=== PATIENT | male | born 1970 | race Caucasian/White ===

== ENCOUNTER 2019-02-12 13:08 | Emergency (ER) | payer BC ==
--- OUTSIDE RECORDS SUMMARY | 2019-02-12 13:11 | XMS REPORT | Clinical Summary ---
:1970 [address] [facility] [place], [place] Address [address] [place] [address] Care Team Providers Name Role Phone Trip Primary Care Provider Allergies No Known Allergies Medications Medication Sig Dispensed Refills Start Date End Date Status lisinopril Take 10 mg by 0 Active (PRINIVIL,ZESTRIL) 10 mouth 2 (two) MG tablet times daily. propranolol (INDERAL) Take 10 mg by 0 Active 10 MG tablet mouth 2 (two) times daily. Missing or 0 Active Non-Formulary Medication Active Problems Problem Noted Date Rectal bleeding 10/07/2014 Social History Tobacco Use Types Packs/Day Years Used Date Never Smoker Smokeless Tobacco: Current User Snuff Tobacco Cessation: Ready to Quit: Yes; Counseling Given: Yes Alcohol Use Drinks/Week oz/Week Comments Yes OCCASIONAL Sex Assigned at Date Recorded Not on file Job Start Date Occupation Industry Not on file Not on file Not on file Travel History Travel Start Travel End No recent travel history available. Last Filed Vital Signs Not on file Plan of Treatment Not on file Implants Implanted Type Area Blood Bank Attendant Device Shelf Model / Identifier Expiration Date Serial / Lot Adhesion Barrier,Seprafilm 5x6 - [id number] Cement/Fi [employer] [id number] / Implanted: Qty: 1 on 10/11/2014 by Rickey Duvall MD llaudi/[employer] / sive [id number] Results Not on fileafter 02/11/2018 Insurance Payer Benefit Plan / Subscriber ID Type Phone Address Group BLUE CROSS/BLUE BCBS FED xxxxxxxxx [facility] [phone] [address] [place] [address] Advance Directives For more information, please contact:[address] [phone] Code Status Date Activated Date Inactivated Comments Full Code 10/11/2014 5:15 PM 10/14/2014 9:23 PM This code status was determined by: Patient
[2019-02-12 14:57] LABS: Absolute Lymphocytes (CBC) 1.2 K/uL (0.7-4.9); Absolute Monocytes 0.5 K/uL (0.1-1.3); Absolute Neutrophil 6.6 K/uL (1.8-8.0); Basophils % 0.8 % (0-1.3); Eosinophils % 0.8 % (0-4.4); Hematocrit 41.4 % (39.6-49.0); Lymphocytes % 14.4 % (15.3-44.8); MPV 8.7 fL (7.6-11.3); Monocytes % 5.5 % (3.3-12.3); RBC Red Blood Cell Count 4.51 M/uL (4.33-5.43)
[2019-02-12 15:06] LABS: Protime INR 0.99
--- NOTE | 2019-02-12 15:15 | EKG ---
Test Date: 2019-02-12 Test Time: 13:14:32 Port Captain: MALINDA MEASUREMENT RESULTS: Intervals: Rate: 77 CO: 154 QRSD: 96 QT: 334 QTc: 377 [place]: P: 67 CO: 154 QRS: 36 T: 45 INTERPRETIVE STATEMENTS: Normal sinus rhythm Normal ECG Compared to ECG 03/02/2008 20:58:48 No significant changes Electronically Signed On 02-12-19 15:14:54 CDT by Isma Jefferson
[2019-02-12 15:21] LABS: ALT/SGPT 49 U/L (12-78); AST/SGOT 33 U/L (15-37); Albumin 3.8 g/dL (3.4-5.0); Alkaline Phosphatase 60 U/L (45-117); BUN Blood Urea Nitrogen 15 mg/dL (7-18); Bicarbonate 23 mmol/L (21-32); Bilirubin Direct 0.2 mg/dL (0-0.2); Bilirubin Total 0.7 mg/dL (0.2-1.0); Creatine Phosphokinase 200 U/L (39-308); Glucose Level 99 mg/dL (74-106); NT PRO-BNP 23 pg/mL (<125); Protein, Total 7.7 g/dL (6.4-8.2); Sodium Level 132 mmol/L (136-145); Troponin (Emerg Dept Use Only) < 0.02 ng/mL (0.0-0.045)
--- NOTE | 2019-02-12 15:52 | RAD REPORT ---
EXAM DESCRIPTION: RAD - Chest Single View - 02/12/2019 3:45 pm CLINICAL HISTORY: Chest pain and pressure COMPARISON: February 2008 TECHNIQUE: AP portable chest image was obtained 1507 hours . FINDINGS: Lungs are clear of focal finding. Interstitial pattern is similar to comparison. . Heart and vasculature are normal. No measurable pleural effusion and no pneumothorax. No acute bony abnorma lity seen. No acute aortic findings suspected. IMPRESSION: No acute cardiopulmonary process. No significant interval change.
--- NOTE | 2019-02-12 16:37 | EDPHYS ---
Physician Documentation [facility] Name: Hilario Ramsey Age: 48 yrs Sex: Male : 1970 Arrival Date: 02/12/2019 Time: 13:10 Bed 27 Private MD: ED Physician Kwaku Amaya HPI: 02/12 19:00 This 48 yrs old Male presents to ER via Ambulatory with complaints of Chest gs Pain, Shortness Of Breath. 19:00 The patient or guardian reports chest pain that is located primarily in the anterior gs chest wall. Onset: yesterday. The pain does not radiate. Associated signs and symptoms: Pertinent positives: nausea, last pm was nauseated, Pertinent negatives: diaphoresis. The chest pain is described as dull, a heaviness. Duration: The patient or guardian reports multiple episodes, that are intermittent, that wax and wane, with no pattern. Modifying factors: The symptoms are alleviated by nothing. the symptoms are aggravated by nothing. Severity of pain: At its worst the pain was moderate in the emergency department the pain has improved markedly. The patient has experienced similar episodes in the past, a few times. Historical: - Allergies: 13:20 No Known Allergies; ss - PMHx: 13:20 Hypertension; colon CA; ss - PSHx: 13:20 colectomy; knee repair; ss - Immunization history:: Adult Immunizations up to date. - Social history:: Smoking status: Patient uses tobacco products, chewing tobacco. - Ebola Screening: : Patient denies exposure to infectious person Patient denies travel to an Ebola-affected area in the 21 days before illness onset. ROS: 19:00 All other systems are negative. gs Exam: 19:00 Head/Face: Normocephalic, atraumatic. Eyes: Pupils equal round and reactive to light, gs extra-ocular motions intact. Lids and lashes normal. Conjunctiva and sclera are non-icteric and not injected. Cornea within normal limits. Periorbital areas with no swelling, redness, or edema. ENT: Nares patent. No nasal discharge, no septal abnormalities noted. Tympanic membranes are normal and external auditory canals are clear. Oropharynx with no redness, swelling, or masses, exudates, or evidence of obstruction, uvula midline. Mucous membranes moist. Neck: Trachea midline, no thyromegaly or masses palpated, and no cervical lymphadenopathy. Supple, full range of motion without nuchal rigidity, or vertebral point tenderness. No Meningismus. Chest/axilla: Normal chest wall appearance and motion. Nontender with no deformity. No lesions are appreciated. Cardiovascular: Regular rate and rhythm with a normal S1 and S2. No gallops, murmurs, or rubs. Normal PMI, no JVD. No pulse deficits. Respiratory: Lungs have equal breath sounds bilaterally, clear to auscultation and percussion. No rales, rhonchi or wheezes noted. No increased work of breathing, no retractions or nasal flaring. Abdomen/GI: Soft, non-tender, with normal bowel sounds. No distension or tympany. No guarding or rebound. No evidence of tenderness throughout. Back: No spinal tenderness. No costovertebral tenderness. Full range of motion. Skin: Warm, dry with normal turgor. Normal color with no rashes, no lesions, and no evidence of cellulitis. MS/ Extremity: Pulses equal, no cyanosis. Neurovascular intact. Full, normal range of motion. Neuro: Awake and alert, GCS 15, oriented to person, place, time, and situation. Cranial nerves II-XII grossly intact. Motor strength 5/5 in all extremities. Sensory grossly intact. Cerebellar exam normal. Normal gait. 19:00 Constitutional: The patient appears alert, awake. 19:00 ECG was reviewed by the Attending Physician. Vital Signs: 13:20 BP 163 / 95; Pulse 81; Resp 17; Temp 98.6(TE); Pulse Ox 97% on R/A; Weight 95.25 kg; ss Height 5 ft. 9 in. (175.26 cm); Pain 5/10; 14:27 BP 123 / 83; Pulse 72; Resp 16; Temp 98.6(O); Pulse Ox 96% on R/A; mh5 15:45 BP 137 / 91; Pulse 73; Resp 18; Temp 98.7; Pulse Ox 97% on R/A; mg2 16:46 BP 132 / 84; Pulse 71; Resp 18; Temp 98.5(O); Pulse Ox 100% ; Pain 0/10; mg2 13:20 Body Mass Index 31.01 (95.25 kg, 175.26 cm) MDM: 14:34 Patient medically screened. gs 19:00 Differential diagnosis: acute myocardial infarction, chest wall pain, pleurisy, gs pneumonia. HEART Score: History: Slightly Suspicious (0), ECG: Normal (0), Age: > 45 and < 65 years (1), Risk Factors: 1 or 2 risk factors (1), [Hypertension] Troponin: < or = 1 x Normal Limit (0). 19:00 Data reviewed: vital signs, nurses notes, lab test result(s), EKG, radiologic studies. Counseling: I had a detailed discussion with the patient and/or guardian regarding: the historical points, exam findings, and any diagnostic results supporting the discharge/admit diagnosis, the need for outpatient follow up. Response to treatment: the patient's symptoms have resolved after treatment, the patient's pain is gone. 02/12 14:36 Order name: Basic Metabolic Panel; Complete Time: 15:40 02/12 14:36 Order name: CBC with Diff; Complete Time: 15:40 02/12 14:36 Order name: LFT's; Complete Time: 15:40 02/12 14:36 Order name: Magnesium; Complete Time: 15:40 02/12 14:36 Order name: NT PRO-BNP; Complete Time: 15:40 02/12 14:36 Order name: PT-INR; Complete Time: 15:40 02/12 13:18 Order name: EKG; Complete Time: 13:19 02/12 13:18 Order name: EKG - Nurse/Tech; Complete Time: 13:18 02/12 14:36 Order name: Troponin (emerg Dept Use Only); Complete Time: 15:40 02/12 14:36 Order name: XRAY Chest (1 view); Complete Time: 16:01 02/12 14:36 Order name: Cardiac monitoring; Complete Time: 14:51 02/12 14:36 Order name: IV Saline Lock; Complete Time: 14:51 02/12 14:36 Order name: Labs collected and sent; Complete Time: 14:51 02/12 14:36 Order name: CPK; Complete Time: 15:40 02/12 14:36 Order name: O2 Per Protocol; Complete Time: 14:51 02/12 14:36 Order name: O2 Sat Monitoring; Complete Time: 14:52 EC:00 Rate is 77 beats/min. Rhythm is regular. SC interval is normal. QRS interval is normal. gs T waves are Normal. No ST changes noted. Clinical impression: Normal ECG. Interpreted by me. Administered Medications: No medications were administered Disposition: 02/12/19 16:36 Discharged to Home. Impression: Chest pain, unspecified. - Condition is Stable. - Discharge Instructions: Nonspecific Chest Pain. - Medication Reconciliation Form, Thank You Letter, Antibiotic Education, Prescription Opioid Use form. - Follow up: Isma Jefferson MD; When: 2 - 3 days; Reason: Re-evaluation by your physician. Signatures: Dispatcher [employer] [facility] Lily Avalos RN RN ss Kwaku Amaya MD MD Todd Lott RN RN mg2 Corrections: (The following items were deleted from the chart) 16:53 16:36 02/12/2019 16:36 Discharged to Home. Impression: Chest pain, unspecified. mg2 Condition is Stable. Forms are Medication Reconciliation Form, Thank You Letter, Antibiotic Education, Prescription Opioid Use. Follow up: Isma Jefferson; When: 2 - 3 days; Reason: Re-evaluation by your physician. gs
--- NOTE | 2019-02-12 16:37 | ER ---
Nurse's Notes [facility] Name: Hilario Ramsey Age: 48 yrs Sex: Male : 1970 Arrival Date: 02/12/2019 Time: 13:10 Bed 27 Private MD: Diagnosis: Chest pain, unspecified Presentation: 02/12 13:18 Presenting complaint: Patient states: chest pressure that began at 0800 this morning. ss Transition of care: patient was not received from another setting of care. Onset of symptoms was February 12, 2019. Risk Assessment: Do you want to hurt yourself or someone else? Patient reports no desire to harm self or others. Initial Sepsis Screen: Does the patient meet any 2 criteria? No. Patient's initial sepsis screen is negative. Does the patient have a suspected source of infection? No. Patient's initial sepsis screen is negative. Care prior to arrival: None. 13:18 Method Of Arrival: Ambulatory ss 13:18 Acuity: ANDREW 2 ss Historical: - Allergies: 13:20 No Known Allergies; ss - PMHx: 13:20 Hypertension; colon CA; ss - PSHx: 13:20 colectomy; knee repair; ss - Immunization history:: Adult Immunizations up to date. - Social history:: Smoking status: Patient uses tobacco products, chewing tobacco. - Ebola Screening: : Patient denies exposure to infectious person Patient denies travel to an Ebola-affected area in the 21 days before illness onset. Screenin:20 Abuse screen: Denies threats or abuse. Denies injuries from another. Nutritional aj screening: No deficits noted. Tuberculosis screening: No symptoms or risk factors identified. Fall Risk None identified. Assessment: 14:20 General: Appears in no apparent distress. comfortable, Behavior is calm, cooperative, aj appropriate for age. Pain: Complains of pain in anterior aspect of left upper chest and mid-sternal area Pain does not radiate. Pain began suddenly. Neuro: Level of Consciousness is awake, alert, obeys commands, Oriented to person, place, time, situation, Appropriate for age. Cardiovascular: Reports chest pain, Capillary refill < 3 seconds in bilateral fingers Chest pain is described as mild, is located in substernal area episodes are continuous. Respiratory: Airway is patent Respiratory effort is even, unlabored, Respiratory pattern is regular, symmetrical, Denies cough, shortness of breath. Derm: Skin is intact, is healthy with good turgor, Skin is pink, warm \T\ dry. normal. Vital Signs: 13:20 BP 163 / 95; Pulse 81; Resp 17; Temp 98.6(TE); Pulse Ox 97% on R/A; Weight 95.25 kg; ss Height 5 ft. 9 in. (175.26 cm); Pain 5/10; 14:27 BP 123 / 83; Pulse 72; Resp 16; Temp 98.6(O); Pulse Ox 96% on R/A; mh5 15:45 BP 137 / 91; Pulse 73; Resp 18; Temp 98.7; Pulse Ox 97% on R/A; mg2 16:46 BP 132 / 84; Pulse 71; Resp 18; Temp 98.5(O); Pulse Ox 100% ; Pain 0/10; mg2 13:20 Body Mass Index 31.01 (95.25 kg, 175.26 cm) ED Course: 13:10 Patient arrived in ED. rg4 13:15 EKG completed in triage. Results shown to MD. 13:19 Triage completed. ss 13:20 Arm band placed on right wrist. 13:26 EKG done, by veterinary technician assistant. reviewed by Db Snell MD. 3 14:08 Kwaku Amaya MD is Attending Physician. gs 14:15 Rossy Glass, RN is Primary Nurse. aj 14:20 Patient has correct armband on for positive identification. property assessment monitor on. Pulse aj ox on. NIBP on. 14:20 Patient maintains SpO2 saturation greater than 95% on room air. aj 15:22 X-ray completed. Portable x-ray completed in exam room. Patient tolerated procedure ml well. 15:45 XRAY Chest (1 view) In Process Unspecified. EDMS 15:45 No provider procedures requiring assistance completed. Inserted saline lock: 20 gauge mg2 in right antecubital area, using aseptic technique. Blood collected. 16:36 Isma Jefferson MD is Referral Physician. gs 16:46 IV discontinued, intact, bleeding controlled, No redness/swelling at site. Pressure mg2 dressing applied. Administered Medications: No medications were administered Outcome: 16:36 Discharge ordered by MD. gs 16:47 Discharged to home ambulatory, with family. mg2 16:47 Condition: stable 16:47 Discharge instructions given to patient, family, Instructed on discharge instructions, follow up and referral plans. Demonstrated understanding of instructions, follow-up care. 16:53 Patient left the ED. mg2 Signatures: Dispatcher [employer] Rossy Murphy, Nancy Berman RN, Shelby, RN RN ss Garcia, Rubi 4 Grazyna Lanier 5 Kwaku Amaya MD MD Todd Lott RN RN mg2 Elzbieta Hammer 3
[2019-02-12 18:15] VITALS: BP 132/84; TEMP 98.5; O2SAT 100
== END 2019-02-12 16:53 | disposition home or self-care (01) ==
LOC: ER 13:08
DX: R07.9 Chest pain, unspecified (principal); I10 Essential (primary) hypertension; C18.9 Malignant neoplasm of colon, unspecified; F17.220 Nicotine dependence, chewing tobacco, uncomplicated
CPT/HCPCS: 36415; 71045; 80048; 80076; 82550; 83735; 83880; 84484; 85025; 85610; 93005; 99285